=== PATIENT | female | born 1935 | race Caucasian/White ===

== ENCOUNTER → 2019-08-06 08:48 | Outpatient (CLI) | payer OTHER | END | disposition home or self-care (01) | LOC: D.RAD 08-05 09:00 | PROVIDERS: ATTEND Podiatrist | DX: I70.202 Unspecified atherosclerosis of native arteries of extremities, left leg (principal); I79.8 Other disorders of arteries, arterioles and capillaries in diseases classified elsewhere ==

== ENCOUNTER 2020-01-08 11:39 | Inpatient (IN) | payer OTHER ==
[~2020-01-08] VITALS: Ht 154.9 cm; Wt 62.7 kg
--- NOTE | ~2020-01-08 | DS ---
PATIENT:GLIDARDO SUTTON :31 MEDICAL RECORD: [id number] DISCHARGE SUMMARY ADMISSION DATE: 01/08/20 DISCHARGE DATE: 01/09/20 DIAGNOSES: 1. Congestive heart failure. 2. Aortic stenosis. 3. Hypertension. 4. Edema. 5. Shortness of breath. HOSPITAL COURSE: Mrs. Sutton presents with fluid overload secondary to her valvular heart disease. She has a normal ejection fraction. She underwent diuresis with a Bumex drip. Her respiratory status returned to baseline, was discharged home. To restart her Lasix that for some reason she was off of. No other change in her medication. Follow up with [facility] in 2 weeks. TRANSINT:[id number] Voice Confirmation ID: [id number] DOCUMENT ID: [id number] MICHELLE RUELAS MD CC: [id number] DICTATION DATE: 01/09/20 1028 PRECISION MILLWRIGHT: 01/10/20 0855 DIS IN 01/09/20 [place] [id number] [place] [id number]
--- NOTE | 2020-01-08 12:08 | NUR ---
pt to room from dr unger office admit for chf. granddaughter with pt, she will be going to get list of meds. breathing ok for now per pt.
[2020-01-08 12:52] LABS: BASOPHILS 0.3 % (0-2); EOSINOPHILS 0.8 % (0-7); HEMATOCRIT 32.3 % (36.0-48.0); HEMOGLOBIN 9.9 g/dL (12-16); IMMATURE GRANULOCYTES 1.2 % (0-5); LYMPHOCYTES 14.9 % (15-50); MCH 25.3 pg (26.0-34.0); MCHC 30.7 g/dL (31.0-37.0); MCV 82.6 fL (80.0-100.0); MEAN PLATELET VOLUME 9.8 fL (7.4-10.4); MONOCYTES 9.2 % (2-11); NEUTROPHILS 73.6 % (40-80); PLATELET COUNT 250 10x3/uL (130-400); RBC 3.91 10x6/uL (4.00-5.40); RDW 17.9 % (11.5-14.5)
[2020-01-08 13:30] LABS: ANION GAP 14.5 mmol/L (8-16); CALCIUM 8.8 mg/dL (8.5-10.1); CARBON DIOXIDE 22.7 mmol/L (21.0-32.0); CREATININE - SERUM 1.2 mg/dL (0.6-1.3); POTASSIUM - SERUM 3.2 mmol/L (3.5-5.1)
[2020-01-08 16:16] VITALS: BP 163/94; Ht 154.9 cm; Wt 62.7 kg
--- NOTE | 2020-01-08 19:10 | NUR ---
BEDSIDE REPORT RECEIVED FROM DAY SHIFT, PT CARE ASSUMED. INTRODUCED SELF AND WROTE NAME ON BOARD. PT SITTING UP IN BED, AAOX4, C/O DYSPNEA R/T "GETTING OUT OF BED AND GOING TO THE RESTROOM." INSTRUCTED PT TO BREATHE THROUGH NOSE WITH THE NASAL CANNULA AND OUT THROUGH MOUTH, VERBALIZED UNDERSTANDING. DENIES ANY NEEDS AT THIS TIME. BED IN LOWEST POSITION, SR X2, CALL LIGHT WITHIN REACH. WILL CONTINUE TO MONITOR.
[2020-01-08 20:00] VITALS: BP 152/68
[2020-01-09] VITALS: BP 124/61
[2020-01-09 04:00] VITALS: BP 151/60
[2020-01-09 09:10] VITALS: BP 95/47
--- NOTE | 2020-01-09 10:28 | EC ---
PATIENT:GILDARDO SUTTON DATE OF SERVICE: 01/08/20 SEX: F MEDICAL RECORD: [id number] DATE OF : 31 LOCATION:D.M2 D.210 AGE OF PATIENT: 84 ADMISSION DATE: 01/08/20 REFERRING PHYSICIAN: INTERPRETING PHYSICIAN: MICHELLE HARRIS MD ECHOCARDIOGRAM REPORT ECHO CHARGES 4 ECHO COMPLETE Date: 01/08/20 CLINICAL DIAGNOSIS: CHF ECHOCARDIOGRAPHIC MEASUREMENTS (adult normal given) AC root (d.<3.7cm) 2.5 cm LV Septum d (<1.2 cm> 0.9 cm Valve Excursion 1.1 cm LV Septum (systole) 1.0 cm Left Atria (s.<4.0cm> 4.6 cm LVPW d(<1.2cm) 1.1 cm RV (d.<2.3cm) 2.6 cm LVPW (sytole) 1.2 cm LV diastole(<5.6CM) 5.1 cm MV E-F(>70mm/sec) cm LV systole 4.0 cm LVOT Diameter 1.5 cm MV exc.(>10mm) cm Est.ejection fraction (50-75%) % DOPPLER: LVIT cm/sec A 91 cm/sec E 107 cm/sec LA cm/sec RVSP 23.5 mmHg LVOT 99 cm/sec AOP1/2T m/s Asc. Ao 215 cm/sec RVOT 66 cm/sec RA cm/sec PA 74 cm/sec AV Gradient Peak 18.4 mmHg AV Mean 10.3 mmHg AV Area 0.7 cm MV Gradient Peak 11.9 mmHg MV Mean 3.3 mmHg MV Area cm COMMENTS: Family Preservation Worker: Rodriguez [facility] Restaurant Manager: 1 Dr. Harris TAPE# PACS Pericardial Effusion Y DATE OF SERVICE: 01/08/2020 FINDINGS: 1. Left ventricular chamber size is within normal limits. Left ventricular systolic function is normal. Overall ejection fraction estimated at 55%. 2. Left atrium is enlarged at 4.6 cm. Right atrium and right ventricle chamber sizes are within normal limits. 3. Valvular structures: Aortic valve demonstrates [id number]-xfsykr calcific aortic stenosis, valve area calculates to 0.7 cm-squared and there is a gradient of 18 mm across the valve. The remaining valvular structures have normal ECHOCARDIOGRAM REPORT [id number] GILDARDO SUTTON structure and motion. 4. Doppler interrogation reveals mild mitral regurgitation, no other valvular insufficiency or stenosis. Pulmonary systolic pressure estimated at 24 mmHg. 5. Small pericardial effusion is present. This is not hemodynamically significant. TRANSINT:[id number] Voice Confirmation ID: [id number] DOCUMENT ID: [id number] MICHELLE HARRIS MD at 1028 CC: [id number] DICTATION DATE: 01/08/201525 [place]: 01/08/202036 ADM IN [facility] [address] [place] [id number]
[2020-01-09] MEDS ORDERED: PRAVACHOL20 MG PO (10:35)
[2020-01-09] MEDS ORDERED: PLAVIX75 MG PO (10:35)
[2020-01-09] MEDS ORDERED: COZAAR100 MG PO (10:35)
[2020-01-09] MEDS ORDERED: NORVASC5 MG PO (10:35)
[2020-01-09] MEDS ORDERED: LASIX40 MG PO (10:40)
--- NOTE | 2020-01-09 11:12 | NUR ---
02 SAT 97% ON RA AMBULATING. IV AND TELEMETRY DCD. DC PLANS GIVEN. UNDERSTANDING VOICED.
--- NOTE | 2020-01-09 11:34 | NUR ---
ESCORTED TO CAR BY W/C.
--- NOTE | 2020-01-11 09:08 | MORECARE ---
CASE MANAGEMENT DISCHARGE SUMMARY PATIENT: GILDARDO SUTTON UNIT: [id number] ADM DATE: 01/08/20 AGE: 84 : [birth year] SEX: F ROOM/BED: D.2106 AUTHOR: PHI CREWS PHYSICIAN: REFERRING PHYSICIAN: MICHELLE RUELAS MD DATE OF SERVICE: 01/11/20 Discharge Plan Patient Name: GILDARDO SUTTON Facility: [facility]:[place] : 1935 Planned Disposition: Home Anticipated Discharge Date: 01/09/20 Discharge Date: 01/09/2020 Expected LOS: 1 Initial Reviewer: [email or web address] Initial Review Date: 01/11/2020 Generated: 01/11/20 10:08 am Patient Name: GILDARDO SUTTON Page [id number] at 0908 All edits/amendments must be made on the electronic document DICTATION DATE: 01/11/20907 ARBORER: DM 01/11/20907 RPT#: [id number] DC DATE:01/09/20 STATUS: DIS IN [facility] [address] [place] [address] END OF REPORT
== END 2020-01-09 11:35 | disposition home or self-care (01) | DRG 306 ==
LOC: D.M2 11:39
PROVIDERS: ADMIT Internal Medicine Interventional Cardiology; ATTEND Internal Medicine Interventional Cardiology
DX: I35.0 Nonrheumatic aortic (valve) stenosis (principal); I50.21 Acute systolic (congestive) heart failure; I11.0 Hypertensive heart disease with heart failure